=== PATIENT | female | born 1965 | race Caucasian/White ===

== ENCOUNTER → 2016-07-01 | Outpatient (CLI) | payer BC ==
[~2016-07-01] MED LIST: GLUCOSAMINE MSM1 TAB PO; MULTI VITAMINS1 TAB PO; NATURAL MAGNES200 MG PO; OMEGA-31 SGL PO; OSCAL 500 TAB500 MG PO; PHARMASSURE CHE30 MG PO; TIROSINT25 MC1 PO
== END ==
LOC: MC.RAD 07:00
DX: Z12.31 Encounter for screening mammogram for malignant neoplasm of breast (principal)

== ENCOUNTER 2016-07-09 08:23 | Day surgery (SDC) | payer BC ==
[~2016-07-09] VITALS: Ht 172.7 cm; Wt 63.3 kg
[2016-07-09] MEDS ORDERED: TIROSINT25 MC1 PO (08:40)
[2016-07-09] MEDS ORDERED: OSCAL 500 TAB500 MG PO (08:41)
[2016-07-09] MEDS ORDERED: MULTI VITAMINS1 TAB PO (08:41)
[2016-07-09] MEDS ORDERED: PHARMASSURE CHE30 MG PO (08:42)
[2016-07-09] MEDS ORDERED: NATURAL MAGNES200 MG PO (08:42)
[2016-07-09] MEDS ORDERED: OMEGA-31 SGL PO (08:43)
[2016-07-09] MEDS ORDERED: GLUCOSAMINE MSM1 TAB PO (08:44)
[2016-07-09 08:57] VITALS: BP 153/102; PULSE 65; TEMP 97.3
[2016-07-09 09:45] VITALS: BP 108/73; PULSE 67; TEMP 97
[2016-07-09 10:02] VITALS: BP 121/80; PULSE 50
[2016-07-09 10:15] VITALS: BP 133/99; PULSE 56
== END 2016-07-09 10:35 | disposition home or self-care (01) ==
LOC: SDCO 08:23
DX: Z12.11 Encounter for screening for malignant neoplasm of colon (principal)
CPT/HCPCS: J2250; J3010; J7030

== ENCOUNTER → 2017-08-04 | Outpatient (CLI) | payer BC | LOC: MC.RAD 08:38 | DX: Z12.31 Encounter for screening mammogram for malignant neoplasm of breast (principal) ==

== ENCOUNTER → 2018-08-14 | Outpatient (CLI) | payer BC | LOC: MC.RAD 07:00 | DX: Z12.31 Encounter for screening mammogram for malignant neoplasm of breast (principal); N63.10 Unspecified lump in the right breast, unspecified quadrant; N63.20 Unspecified lump in the left breast, unspecified quadrant ==

== ENCOUNTER → 2019-08-27 | Outpatient (CLI) | payer BC | LOC: MC.RAD 07:15 | DX: Z12.31 Encounter for screening mammogram for malignant neoplasm of breast (principal) ==

== ENCOUNTER → 2020-08-27 | Outpatient (CLI) | payer BC | LOC: MC.RAD 07:19 | DX: Z12.31 Encounter for screening mammogram for malignant neoplasm of breast (principal) ==

== ENCOUNTER 2023-04-14 14:15 | Outpatient (RCR) | payer BC | END 2023-04-21 | disposition home or self-care (01) | LOC: WSOT | DX: M79.641 Pain in right hand (principal); M79.642 Pain in left hand ==

== ENCOUNTER → 2023-05-17 | Outpatient (CLI) | payer BC ==
[~2023-05-17] MED LIST changes: +Gadoterate 5 ML VIAL IV ONE; +Iohexol 300 - 10 ML VIAL IV ONE
== END ==
LOC: COL.RAD 08:57
DX: M79.641 Pain in right hand (principal)
CPT/HCPCS: A9575; Q9967

== ENCOUNTER → 2023-10-04 | Outpatient (CLI) | payer BC ==
[~2023-10-04] MED LIST changes: -Gadoterate 5 ML VIAL IV ONE; -Iohexol 300 - 10 ML VIAL IV ONE
== END ==
LOC: MC.RAD 07:34
DX: Z12.31 Encounter for screening mammogram for malignant neoplasm of breast (principal)